=== PATIENT | female | born 2005 | race Caucasian/White ===

== ENCOUNTER 2024-10-21 03:52 | Emergency (ER) | payer BC, SELFPAY ==
[2024-10-21 03:56] VITALS: BP 143/78; PULSE 75; RESP 18; TEMP 36.8; O2SAT 99; BMI 22.3
[2024-10-21] MEDS: Lidocaine 2% Viscous15 ML UDC 10 ML PO (04:26)
[2024-10-21] MEDS: Ketorolac 30 MG/ML Syringe IM (04:26)
[2024-10-21] MEDS: dexAMETHasone 10 MG/ML Vial PO.IVFORM (04:26)
--- NOTE | 2024-10-21 04:29 | EDS_ITS ---
HPI History of Present Illness Chief Complaint: Other, Pain/Inj Informant: patient Narrative Narrative: Patient is a 19-year-old female with past medical history of anxiety and depression. She states that 1 to 2 days ago she noticed a sensation of throat discomfort which felt like her muscles were spasming. She states that it resolved after a short time and she did not think anything of it. She does report it occurred mainly at night. She was able to go through the day without any issues but this evening as she has been trying to sleep she keeps awakening with report of sore throat/neck and sensation of spasm. Patient denies any recent trauma fevers or chills. She denies any known sick contacts. She denies any new exposures. She states she was talking to her father about her symptoms and with concern the throat pain could be infection or even causing airway compromise he advised her to go to the ER for evaluation. [facility] Medical History Depression Anxiety Home Medications ?Medication ?Instructions ?Recorded ?Last Taken ?Type guanfacine 1 mg tablet 1 mg PO DAILY 10/21/24 Unkno wn History sertraline 150 mg capsule 125 mg PO DAILY 10/21/24 Unk nown History sumatriptan succinate 25 mg tablet 25 mg PO Q2H PRN mi graine headache 10/21/24 Unknown History (Imitrex) Allergy/AdvReac Type Severity Reaction Status Date / Time amoxicillin Allergy Swelling Verified 10/21/24 03:54 Social History Smoking Status: Never smoker [facility] ED Constitutional Constitutional ED: Denies chills or fever(s) Eyes Eyes: Denies change in vision ENT ENT ED: Reports sore throat Cardiovascular Cardiovascular: Denies chest pain Respiratory/Chest Respiratory/Chest: Denies cough or dyspnea Gastrointestinal Gastrointestinal: Denies abdominal pain, diarrhea, nausea or vomiting Musculoskeletal Musculoskeletal: Reports neck pain Integumentary Denies rash Neurologic Neurologic: Denies headache(s) Hematologic/Lymphatic Hematologic/Lymphatic: Denies easy bleeding or easy bruising Allergic/Immunologic Allergic/Immunologic ED: Denies mouth swelling or tongue swelling EXAM Physical Exam Const Vital Signs: 10/21/24 03:56 10/21/24 03:58 Temperature 98.2 F Temperature Source Oral Pulse Rate 75 Respiratory Rate 18 Respiratory Effort Normal Non-Labored Respiratory Pattern Normal Blood Pressure 143/78 H Blood Pressure Mean 99 Pulse Ox 99 Oxygen Delivery Method Room Air Positive well nourished and well developed General Appearance ED: well developed; Negative for pallor HEENT Reports moist mucous membranes HEENT Narrative: No tongue or lip swelling; no oral lesions; no airway edema or compromise No trismus change in voice or difficulty with secretions No secondary findings in the posterior pharynx to suggest infection Eyes PERRL and EOMs intact bilaterally General Eye ED: Negative for scleral icterus Neck supple Neck Narrative: No brawny edema in the submental space to suggest Steven's angina No subcutaneous emphysema palpated No obvious thyroid lesion or nodule There is left anterior cervical lymphadenopathy noted which is tender to touch and according the patient the same pain she has been experiencing. Resp normal respiratory effort and clear to auscultation bilaterally Resp Narrative: No nasal flaring retractions tachypnea or accessory muscle use Cardio regular rate and regular rhythm Extremity normal to inspection Extremity Narrative: No asymmetric edema no pitting edema negative Homans' sign bilaterally Neuro oriented x3, CN's II-XII intact bilaterally and no sensory deficits noted Sensorium / Orientation: alert Motor Exam: strength 5/5 throughout Psych Mood & Affect: anxious Skin no rashes or lesions noted and no wounds Skin Narrative: No overlying soft tissue changes to suggest trauma or infection General Skin Exam: Negative for jaundice or pallor MDM MDM MDM Narrative Medical decision making narrative: Patient arrived to ER with stable vitals and in no acute distress. She reported feeling irritation in her throat. Differential diagnosis is for infectious process such as strep throat viral pharyngitis mononucleosis. Patient also could have potential epiglottitis or peritonsillar abscess. By exam she does not have angioedema or anaphylaxis so there is no need for airway stabilization with intubation. In order to check for strep throat or epiglottitis I did elect to perform a soft tissue neck x-ray as well as a rapid strep sample. Rapid strep swab was negative correlates with her physical exam and x-ray shows no sign of free air or epiglottitis which also correlates with her symptoms. At this time I feel she is noting discomfort from the swollen lymph nodes but without overlying erythema or warmth I do not feel they are infected. As she does not have signs of respiratory distress or airway compromise there is no need for further intervention and she is otherwise safe for discharge. Of note the patient was given viscous lidocaine Decadron and Toradol and had resolution of symptoms and was able to sleep well in the ER History & Record Review Discussion w/independent historian: Patient Radiography Diagnostic Testing: Clinical Impression(s) from Imaging Studies Soft Tissue Neck X-Ray 10/21/24 04:30 IMPRESSION: Unremarkable airways. Reading Location: [place] [id number] Soft tissue neck x-ray as interpreted by the emergency medicine physician reveals no signs of airway compromise free air or epiglottitis Discharge Plan Triage Chief Complaint: Other, Pain/Inj ED Provider: Caio Jeffers Dx/Rx/DC Orders Clinical Impression: Lymphadenopathy, cervical, Anxiety and depression Instructions: Lymphadenopathy Prescriptions: No Action sertraline 150 mg capsule 125 mg PO DAILY guanfacine 1 mg tablet 1 mg PO DAILY sumatriptan succinate [Imitrex] 25 mg tablet 25 mg PO Q2H PRN (Reason: migraine headache) Rx Instructions: do not exceed 8 doses per 24 hrs Primary Care Provider: Care Physician,No Primary Referrals: Care Physician,No Primary [Primary Care Provider] - Activity Restrictions/Additional Instructions: Your workup showed no sign of infection such as strep throat or epiglottitis and there are no findings of angioedema or anaphylaxis. Your exam indicates that your symptoms are most likely from mildly swollen lymph nodes which should resolve on their own in the next 5 to 7 days. Return to the ER should you have any further concerns Print Language: Indonesian Disposition Disposition: Home, Self Care
--- NOTE | 2024-10-21 04:30 | RAD_ITS ---
PROCEDURE: NECK FOR SOFT TISSUE 10/21/2024 REASON FOR EXAM: PAIN TECHNIQUE: NECK FOR SOFT TISSUE COMPARISON: None. FINDINGS: Normal epiglottis, without demonstrated thickening or altered morphology. Normal visualized nasopharynx, oropharynx, hypopharynx. Normal prevertebral soft tissue structures. Normal visualized subglottic tracheal air column. Normal osseous structures. There is no demonstrated soft tissue abnormality. RAD/Neck for Soft Tissue IMPRESSION: Unremarkable airways. Reading [facility]
[2024-10-21 05:30] VITALS: BP 119/79; PULSE 72; RESP 16; TEMP 36.8; O2SAT 98
== END 2024-10-21 05:32 | disposition home or self-care (01) ==
PROVIDERS: Emergency Provider Emergency Medicine; Visit Provider Emergency Medicine
DX: R59.0 Localized enlarged lymph nodes (principal); F32.A Depression, unspecified; F41.9 Anxiety disorder, unspecified; Z79.899 Other long term (current) drug therapy
CPT/HCPCS: 96372; 70360; 87651; 99284